=== PATIENT | male | born 1990 | race Caucasian/White ===

== ENCOUNTER → 2017-08-24 | Outpatient (CLI) | payer OTHER ==
--- NOTE | ~2017-08-24 | 24HR ---
[facility] [place] [address] 24 HR ELECTROCARDIOGRAM REPORT Name: JAROD SCHULTZ JR Room #: REG [facility]#: [id number] Admission: 08/24/17 Attend Phys: Latesha Jimenez Discharge: Date of : 88 Date of Service: 08/24/17 1338 Report #: [id number] THIS REPORT FOR: //name// [facility] Test Date: 2017-08-24 Test Time: 13:38:00 Pat Name: JAROD SCHULTZ Department: Room: Gender: Polishing Machine Operator: : 1990 Requested By: Latesha Walker Order Number: [id number] Samy MD: Juanjose Jones Interpretive Statements 1. The study duration was 48 hours and the technical quality was good. 2. Predominant rhythm was sinus rhythm at an average heart rate of 72 bpm, range or 42 to 132 bpm. The longest RR interval was 1.6 seconds. 3. Rare isolated atrial premature complexes. No episodes of atrial fibrillation or atrial flutter. No heart block. No supraventricular tachycardia 4. 1 isolated premature ventricular complex. No episodes of ventricular tachycardia. 5. No cardiac symptoms were described in the diary. No patient activated events. Electronically Signed On 08-28-2017 7:33:45 CDT by Juanjose Jones [email or web address] <ELECTRONICALLY SIGNED> By: Juanjose Jones MD, [facility] 08/28/17 0733 1338 1338 Juanjose Jones MD, [facility] /EPI
== END ==
LOC: CV 12:19
DX: F41.9 Anxiety disorder, unspecified (principal); R42 Dizziness and giddiness